=== PATIENT | male | born 1995 | race Caucasian/White ===

== ENCOUNTER 2017-09-09 08:53 | Emergency (ER) | payer OTHER ==
[2017-09-09] MEDS: KETOROLAC 30 MG INJ IM (09:26)
== END 2017-09-09 09:55 | disposition home or self-care (01) ==
LOC: FTE 08:53
DX: M54.5 Low back pain (principal); I10 Essential (primary) hypertension
CPT/HCPCS: 96372; 99284-25

== ENCOUNTER 2018-01-22 14:33 | Emergency (ER) | payer OTHER ==
[2018-01-22] MEDS: METHYLPREDNISOLONE 125 MG INJ IM (15:04)
[2018-01-22] MEDS: KETOROLAC 60 MG INJ IM (15:05)
== END 2018-01-22 15:13 | disposition home or self-care (01) ==
LOC: FTE 14:33
DX: M54.5 Low back pain (principal); I10 Essential (primary) hypertension
CPT/HCPCS: 96372; 99284-25